=== PATIENT | male | born 2000 | race Caucasian/White ===

== ENCOUNTER 2023-02-02 11:09 | Outpatient (CLI) | payer BC, SELFPAY ==
[2023-02-02 12:41] LABS: Basophils Absolute Auto 0.1 K/mm3 (0.0-0.1); Basophils Percent Auto 1.4 % (0.2-1.2); Eosinophils Absolute Auto 0.2 K/mm3 (0-0.3); Eosinophils Percent Auto 3.1 % (0-4.4); Hematocrit 46.6 % (42.0-52.0); Hemoglobin 15.5 g/dL (14.0-18.0); Immature Granulocyte Absolute 0.03 K/mm3 (0.00-0.031); Immature Granulocyte Percent A 0.5 % (0-0.5); Lymphocytes Absolute Auto 1.63 K/mm3 (0.9-3.2); Lymphocytes Percent Auto 28.2 % (18.3-44.2); Mean Corpuscular HGB Conc 33.3 g/dl (32-36); Mean Corpuscular Volume 90.3 fl (80-100); Monocytes Absolute Auto 0.6 K/mm3 (0.1-0.6); Monocytes Percent Auto 10.9 % (2.6-8.5); Neutrophils Absolute Auto 3.2 K/mm3 (1.3-6.7); Neutrophils Percent Auto 55.9 % (45.5-73.1); Platelet Count Result 263 k/mm3 (150-375); Red Blood Count 5.16 M/mm3 (4.6-6.20); Red Cell Distribution Width 12.8 % (11.5-14.5); White Blood Count 5.8 K/mm3 (4.5-10.0)
[2023-02-02 13:00] LABS: Alanine Aminotransferase 21 U/L (6-50); Albumin Level 4.7 g/dL (3.5-5.1); Alkaline Phosphatase 88 U/L (38-126); Anion Gap 6 mmol/L (8-16); Aspartate Amino Transferase 37 U/L (17-59); Bilirubin,Total 0.5 mg/dL (0.2-1.3); Blood Urea Nitrogen 7 mg/dL (9-20); Calcium 9.5 mg/dL (8.4-10.2); Carbon Dioxide 29 mmol/L (22-30); Chloride 107 mmol/L (98-107); Cholesterol 122 mg/dL (0-200); Estimated Glomerular Filt Rate > 60; Glucose 91 mg/dL (65-110); HDL Direct 48 mg/dL; Potassium 4.3 mmol/L (3.4-5.0); Sodium 142 mmol/L (137-145); Triglycerides 53 mg/dL (<150)
[2023-02-02 13:10] LABS: LDL Cholesterol Direct 57 mg/dL
== END 2023-02-02 11:10 | disposition home or self-care (01) ==
LOC: ANHGOSHLAB 11:10
PROVIDERS: PCP Internal Medicine; Visit Provider Nurse Practitioner
DX: R11.2 Nausea with vomiting, unspecified (principal); Z13.220 Encounter for screening for lipoid disorders; Z13.29 Encounter for screening for other suspected endocrine disorder; R10.9 Unspecified abdominal pain
CPT/HCPCS: 36415; 80053; 80061; 85025

== ENCOUNTER 2023-02-05 14:58 | Outpatient (CLI) | payer BC, SELFPAY ==
--- NOTE | ~2023-02-05 | US_ITS ---
US abdomen complete DATE: 02/05/2023 15:42 INDICATION: Abdominal pain TECHNIQUE: Real-time imaging of abdomen, Doppler analysis COMPARISON: 11/08/2012 CT abdomen pelvis FINDINGS: No hepatic space-occupying mass lesion. Normal hepatopedal portal venous flow direction. No gallstones or gallbladder wall thickening or abnormal pericholecystic fluid collection. Negative son ographic Tate's sign. The common bile duct measures 3.8 mm, normal. The pancreas is partially obscured by bowel gas. Each kidney measures approximately 10.6 cm length. No renal mass lesion or hydronephrosis. Normal caliber of the abdominal aorta. The inferior vena cava is unremarkable. Normal splenic size. IMPRESSION: No significant abnormality Reviewed, dictated and finalized at [facility]. Reviewed, dictated and finalized at location [] IMPRESSION: No significant abnormality
== END 2023-02-05 14:59 | disposition home or self-care (01) ==
PROVIDERS: PCP Internal Medicine; Visit Provider Nurse Practitioner
DX: R10.9 Unspecified abdominal pain (principal); R11.2 Nausea with vomiting, unspecified
CPT/HCPCS: 76700

== ENCOUNTER 2023-05-07 02:41 | Day surgery (SDC) | payer BC, SELFPAY ==
--- NOTE | 2023-05-06 20:10 | PM.HPGS ---
History of Present Illness History of Present Illness Consent: Risks, benefits, and alternatives have been discussed and questions answered. Patient agrees to proceed with procedure. Chief complaint: nausea vomiting, unspecified abdominal pain Narrative: Jairo Dubon is a 22 year old male undergoing EGD ?for evaluation of nausea and vomiting.? patient states he was diagnosed with cyclic vomiting when he was in the 4 grade but he had episodes of nausea and vomiting since elementary school. He reports approximately 3-4 times each year with episodes of nausea and vomiting that can last from 3 days to 3 weeks, he is asymptomatic in between episodes. His last episode was this past January which lasted 2 and half weeks with at least 2 episodes of vomiting per day. This last episode was somewhat different than previous episodes, though. After the nausea/vomiting resolved he continues to have lingering upper abdominal discomfort, gurgling and gas.? Review of Systems Review of Systems: All systems reviewed & are unremarkable except as noted in HPI and below PMFSH Past Medical History Medical History Allergies Cyclical vomiting syndrome Headache Family History Family History Mother Diabetes mellitus Grandparent Cerebrovascular accident Heart disease Social History Social History Smoking status: Never smoker Alcohol intake: current Drinks per week: 2 Substance use: current Substance use type: marijuana Last use: Daily Lack of Transportation: No Lack of Food: Never True Current Housing: I Have Housing Concerned About Future Housing: No Difficulty Paying Gas/Electric Bills: No Difficulty Paying for Meds: No Currently Unemployed: No Education: Bachelor's Degree Difficulty w/ Childcare or Family Care: No Living arrangements: with family Spiritual care concerns: No Meds Home Medications and Allergies Home Medications Medication Instructions Recorded Confirmed Type ondansetron HCl 4 mg tablet 4 mg PO Q4-6H PRN nausea and 02/02/23 04/28/23 Rx vomiting #20 tabs Allergies Allergy/AdvReac Type Severity Reaction Status Date / Time cetirizine Allergy Unknown RASH Verified 05/07/23 13:20 Exam Const: General: alert Orientation/consciousness: patient oriented x3 Resp: Auscultation: clear to auscultation bilaterally Cardio: Rhythm: regular rhythm GI: GI Palp: Yes Soft to palpation and No Tenderness to palpation present (GI) Neuro: General: patient oriented x3 Assessment and Plan Assessment and plan (1) Nausea and vomiting: Code(s): R11.2 - Nausea with vomiting, unspecified Status: Acute Assessment and Plan: EGD with possible biopsy or dilatation or cautery.
[2023-05-07 13:21] VITALS: BP 128/86; PULSE 77; RESP 20; TEMP 36.4; O2SAT 100
[2023-05-07] MEDS: LACTATED RINGERS 1,000 ML 150 ML IV CONT (13:33)
--- NOTE | 2023-05-07 13:49 | P.PNAN_ITS ---
Anes - Initial Pre Proc Eval Procedure: Operation Date: 05/07/23 14:30 Proposed Procedures p Esophagogastroduodenoscopy EGD - Rubio Torres MD Date/Time: 05/07/23 13:49 Surgeon: Rubio Torres MD Pre Op Diagnosis: nausea vomiting, unspecified abdominal pain Patient Data Age: 22 Gender: M Height: 1.85 m Weight: 67.8 kg Last Vital Signs Temp 97.6 F 05/07/23 13:21 Pulse 77 05/07/23 13:21 Resp 20 05/07/23 13:21 BP 128/86 05/07/23 13:21 Pulse Ox 100 05/07/23 13:21 O2 Del Method Room Air 05/07/23 13:21 Allergies Allergy/AdvReac Type Severity Reaction Status Date / Time cetirizine Allergy Unknown RASH Verified 05/07/23 13:20 Home Medications Medication Instructions Recorded Confirmed Type ondansetron HCl 4 mg tablet 4 mg PO Q4-6H PRN nausea and 02/02/23 04/28/23 Rx vomiting #20 tabs Patient hx anesthesia problems: none Family hx anesthesia problems: none Results Review: All pre-operative results and documents have been reviewed as part of the pre- operative evaluation. [facility] Past Medical History Medical History Allergies Cyclical vomiting syndrome Headache Family History Family History Mother Diabetes mellitus Grandparent Cerebrovascular accident Heart disease Social History Social History (Updated 02/02/23 @ 10:48 by Italia Reno CMA) Smoking status: Never smoker Alcohol intake: current Drinks per week: 2 Substance use: current Substance use type: marijuana Last use: Daily Lack of Transportation: No Lack of Food: Never True Current Housing: I Have Housing Concerned About Future Housing: No Difficulty Paying Gas/Electric Bills: No Difficulty Paying for Meds: No Currently Unemployed: No Education: Bachelor's Degree Difficulty w/ Childcare or Family Care: No Living arrangements: with family Spiritual care concerns: No Anes - Eval Final PreProcedure Day of Procedure 05/07/23 13:49 Patient weight: normal Heart: regular rate and rhythm Lungs: clear to auscultation Airway: Mallampati scale class II Neurological: alert and oriented Last oral intake: >/= 8 hours ASA classification: II Emergent: no Anesthetic plan: proceed Anesthesia type and monitoring: general GIVS and standard monitoring Results Review: All pre-operative results and documents have been reviewed as part of the pre- operative evaluation. Informed Consent: The patient's anesthetic plan and its attendant risks and benefits were discussed with the patient/family/POA. Questions were solicited and answers provided to the satisfaction of the patient/family/POA.
[2023-05-07 14:35] VITALS: BP 111/83; PULSE 89; RESP 19; O2SAT 98
[2023-05-07 14:45] VITALS: BP 115/79; PULSE 74; RESP 16; O2SAT 100
[2023-05-07 14:55] VITALS: BP 122/89; PULSE 68; RESP 16; O2SAT 100
== END 2023-05-07 15:04 | disposition home or self-care (01) ==
PROVIDERS: PCP Internal Medicine; Visit Provider Internal Medicine Gastroenterology
PROC: 0DJ08ZZ Inspection of Upper Intestinal Tract, Via Natural or Artificial Opening Endoscopic (ICD-10-PCS; CPT 43235; principal; 2023-05-07 14:30)
DX: R11.2 Nausea with vomiting, unspecified (principal); R10.10 Upper abdominal pain, unspecified; F12.90 Cannabis use, unspecified, uncomplicated
CPT/HCPCS: 43239; 87081; 88305; J2704; J7120